=== PATIENT | female | born 1990 | race Two or more races ===

== ENCOUNTER 2023-10-02 02:37 | Emergency (ER) | payer OTHER ==
[~2023-10-02] VITALS: Ht 165.1 cm; Wt 72.6 kg
[2023-10-02] MEDS ORDERED: RINGERS SOLUTION,LACTATED 1,000 ML IV STA (02:53)
[2023-10-02] MEDS ORDERED: METOCLOPRAMIDE HCL 5 MG/ML VIAL IM STA (02:54)
[2023-10-02] MEDS ORDERED: PROMETHAZINE HCL 25 MG/ML AMPUL IM STA (02:55)
[2023-10-02] MEDS ORDERED: FAMOtidine 10 MG/ML (4ML VIAL) IV PUSH STA (02:55)
[2023-10-02] MEDS ORDERED: ONDANSETRON HCL 2 MG/ML VIAL IV STA (02:55)
[2023-10-02] MEDS ORDERED: HYOSCYAMINE SULFATE 0.125 MG TAB.SUBL SL STA (02:56)
[2023-10-02 03:29] LABS: HEMATOCRIT 41.7 % (36.0-45.00); HEMOGLOBIN 14.1 g/dL (12.0-15.00); MEAN CELL VOLUME 87.3 fL (80.00-100.00); MEAN CORPUSCULAR HEMOGLOBIN 29.5 pg (27.00-32.0); MEAN CORPUSCULAR HGB CONC 33.7 g/dl (32.0-36.0); PLATELET COUNT 231 K/uL (150-450); RED BLOOD COUNT 4.77 M/uL (4.00-6.00); RED CELL DISTRIBUTION WIDTH 13.8 % (11.5-14.5)
[2023-10-02 04:26] LABS: CALCIUM 8.4 mg/dL (8.5-10.1); CREATININE SERUM 1.41 mg/dL (0.55-1.02); GFR 43.22
[2023-10-02 04:28] LABS: POTASSIUM 2.8 mEq/L (3.5-5.1)
[2023-10-02] MEDS ORDERED: POTASSIUM CHLORIDE 10 MEQ CAPSULE PO STA (04:29)
== END 2023-10-02 06:15 | disposition home or self-care (01) ==
LOC: ER 02:37
DX: K29.70 Gastritis, unspecified, without bleeding (principal); Z91.013 Allergy to seafood